=== PATIENT | male | born 2000 | race Hispanic/Latino ===

== ENCOUNTER 2021-01-22 16:39 | Emergency (ER) | payer SELFPAY ==
--- NOTE | 2021-01-22 18:13 | EDPHYS ---
Physician Documentation [facility] Name: Juvenal Amezcua Age: 20 yrs Sex: Male : 2000 Arrival Date: 01/22/2021 Time: 16:40 Bed 12 Private MD: ED Physician Devyn Mckeon HPI: 01/22 18:05 This 20 yrs old Male presents to ER via Ambulatory with complaints of Finger satya Injury. 18:05 Trauma demographics: County: The injury occurred in [place]. Mechanism of injury: satya LACERATION. Associated injuries: The patient sustained painful injury. Onset: The symptoms/episode began/occurred 1.5 hour(s) ago. The patient has not experienced similar symptoms in the past. Historical: - Allergies: 16:58 No Known Allergies; jl7 - Home Meds: 16:58 None [Active]; jl7 - PMHx: 16:58 None; jl7 - PSHx: 16:58 None; jl7 - Immunization history:: Adult Immunizations not immunized. - Social history:: Smoking status: Patient denies any tobacco usage or history of. - Family history:: not pertinent. ROS: 18:05 Constitutional: Negative for fever, chills, and weight loss, Eyes: Negative for injury, satya pain, redness, and discharge, ENT: Negative for injury, pain, and discharge, Neck: Negative for injury, pain, and swelling, Cardiovascular: Negative for chest pain, palpitations, and edema, Respiratory: Negative for shortness of breath, cough, wheezing, and pleuritic chest pain, Abdomen/GI: Negative for abdominal pain, nausea, vomiting, diarrhea, and constipation, Back: Negative for injury and pain, : Negative for injury, bleeding, discharge, and swelling, MS/Extremity: Negative for injury and deformity, Neuro: Negative for headache, weakness, numbness, tingling, and seizure, Psych: Negative for depression, anxiety, suicide ideation, homicidal ideation, and hallucinations, Allergy/Immunology: Negative for hives, rash, and allergies, Endocrine: Negative for neck swelling, polydipsia, polyuria, polyphagia, and marked weight changes, Hematologic/Lymphatic: Negative for swollen nodes, abnormal bleeding, and unusual bruising. 18:05 Skin: Positive for laceration(s). Exam: 18:05 Constitutional: This is a well developed, well nourished patient who is awake, alert, satya and in no acute distress. Head/Face: Normocephalic, atraumatic. Eyes: Pupils equal round and reactive to light, extra-ocular motions intact. Lids and lashes normal. Conjunctiva and sclera are non-icteric and not injected. Cornea within normal limits. Periorbital areas with no swelling, redness, or edema. ENT: Nares patent. No nasal discharge, no septal abnormalities noted. Tympanic membranes are normal and external auditory canals are clear. Oropharynx with no redness, swelling, or masses, exudates, or evidence of obstruction, uvula midline. Mucous membranes moist. Neck: Trachea midline, no thyromegaly or masses palpated, and no cervical lymphadenopathy. Supple, full range of motion without nuchal rigidity, or vertebral point tenderness. No Meningismus. Chest/axilla: Normal chest wall appearance and motion. Nontender with no deformity. No lesions are appreciated. Cardiovascular: Regular rate and rhythm with a normal S1 and S2. No gallops, murmurs, or rubs. Normal PMI, no JVD. No pulse deficits. Respiratory: Lungs have equal breath sounds bilaterally, clear to auscultation and percussion. No rales, rhonchi or wheezes noted. No increased work of breathing, no retractions or nasal flaring. Abdomen/GI: Soft, non-tender, with normal bowel sounds. No distension or tympany. No guarding or rebound. No evidence of tenderness throughout. Back: No spinal tenderness. No costovertebral tenderness. Full range of motion. Male : Normal genitalia with no discharge or lesions. MS/ Extremity: Pulses equal, no cyanosis. Neurovascular intact. Full, normal range of motion. Neuro: Awake and alert, GCS 15, oriented to person, place, time, and situation. Cranial nerves II-XII grossly intact. Motor strength 5/5 in all extremities. Sensory grossly intact. Cerebellar exam normal. Normal gait. Psych: Awake, alert, with orientation to person, place and time. Behavior, mood, and affect are within normal limits. 18:05 Skin: injury, laceration(s), the wound is approximately 2.5 cm(s), with a depth of .25 cm(s), of the palmar aspect of proximal phalanx of left little finger. Vital Signs: 16:56 BP 163 / 96; Pulse 72; Resp 17; Temp 97.5; Pulse Ox 100% ; Weight 120.2 kg; Height 5 jl7 ft. 9 in. (175.26 cm); Pain 0/10; 16:56 Body Mass Index 39.13 (120.20 kg, 175.26 cm) jl7 MDM: 17:05 Patient medically screened. [facility] 18:05 Data reviewed: vital signs, nurses notes. 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 rate is 72 beats/min, rhythm is regular. Counseling: I had a detailed discussion with the patient and/or guardian regarding: the historical points, exam findings, and any diagnostic results supporting the discharge/admit diagnosis. 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 Exp: es2 08/08/2022. Lot #: [id number]. } Route: IM; Site: right deltoid; 18:46 Follow up: Response: No adverse reaction es2 18:20 Drug: KeFLEX (cephalexin) 500 mg Route: PO; es2 18:46 Follow up: Response: No adverse reaction es2 18:46 Drug: Lidocaine-Epinephrine -1%: (1:100,000) 5 ml Volume: 20 ml; Route: Infiltration; es2 18:46 Follow up: Response: No adverse reaction es2 18:46 Drug: Neosporin (wczizngh-eqqfkvkwaf-[id number]) Ointment 1 application Route: Topical; es2 Site: left hand; 18:47 Follow up: Response: No adverse reaction es2 Disposition Summary: 01/22/21 18:12 Discharge Ordered Location: Home satya Problem: new satya Symptoms: have improved satya Condition: Stable satya Diagnosis - Laceration without foreign body of left hand satya Followup: satya - With: Private Physician - When: 7 - 10 days - Reason: Recheck today's complaints, Continuance of care, Re-evaluation by your physician Discharge Instructions: - Discharge Summary Sheet satya - Laceration Care, Adult satya - Laceration Care, Adult, [id number] Forms: - Medication Reconciliation Form satya - Thank You Letter satya - Antibiotic Education satya - Prescription Opioid Use [facility] Prescriptions: - Cephalexin 500 mg Oral Capsule - take 1 capsule by ORAL route every 6 hours for 7 days; 28 capsule; Refills: 0, satya Product Selection Permitted Signatures: Deyvn Mckeon MD MD cha Leal, Jahala RN RN jl7 Breana Barcenas RN RN es2
--- NOTE | 2021-01-22 18:13 | ER ---
Nurse's Notes [facility] Name: Juvenal Amezcua Age: 20 yrs Sex: Male : 2000 Arrival Date: 01/22/2021 Time: 16:40 Bed 12 Private MD: Diagnosis: Laceration without foreign body of left hand Presentation: 01/22 16:56 Chief complaint: Patient states: Laceration to anterior side of little finger and palm jl7 from jacob while sanding a car fender. Coronavirus screen: At this time, the client does not indicate any symptoms associated with coronavirus-19. Ebola Screen: No symptoms or risks identified at this time. Initial Sepsis Screen: Does the patient meet any 2 criteria? No. Patient's initial sepsis screen is negative. Does the patient have a suspected source of infection? No. Patient's initial sepsis screen is negative. Risk Assessment: Do you want to hurt yourself or someone else? Patient reports no desire to harm self or others. Onset of symptoms was January 22, 2021. 16:56 Method Of Arrival: Ambulatory [facility] 16:56 Acuity: FORTINO 4 jl7 Triage Assessment: 16:58 General: Appears in no apparent distress. uncomfortable, Behavior is calm, cooperative, jl7 appropriate for age. Pain: Denies pain. Musculoskeletal: Range of motion: intact in all extremities. Injury Description: Laceration sustained to palmar aspect of proximal phalanx of left little finger. Historical: - Allergies: 16:58 No Known Allergies; jl7 - Home Meds: 16:58 None [Active]; jl7 - PMHx: 16:58 None; jl7 - PSHx: 16:58 None; jl7 - Immunization history:: Adult Immunizations not immunized. - Social history:: Smoking status: Patient denies any tobacco usage or history of. - Family history:: not pertinent. Screenin:22 Abuse screen: Denies threats or abuse. Denies injuries from another. Nutritional es2 screening: No deficits noted. Tuberculosis screening: No symptoms or risk factors identified. Fall Risk Gait- Normal/Bed Rest/Wheelchair (0 pts) Mental Status- Oriented to own ability (0 pts). Assessment: 17:20 General: Appears comfortable, well developed, well nourished, Behavior is calm, es2 cooperative, appropriate for age. Pain: Denies pain. Neuro: Level of Consciousness is awake, alert, obeys commands, Oriented to person, place, time, situation, Appropriate for age Gait is steady, Speech is normal, Facial symmetry appears normal. Cardiovascular: Capillary refill < 3 seconds Patient's skin is warm and dry. Respiratory: Airway is patent Trachea midline Respiratory effort is even, unlabored, Respiratory pattern is regular, symmetrical. GI: No signs and/or symptoms were reported involving the gastrointestinal system. : No signs and/or symptoms were reported regarding the genitourinary system. EENT: No signs and/or symptoms were reported regarding the EENT system. Derm: No signs and/or symptoms reported regarding the dermatologic system. Derm: lac to pinkie. Musculoskeletal: No signs and/or symptoms reported regarding the musculoskeletal system. Injury Description: Laceration sustained to left hand and palmar aspect of proximal phalanx of left little finger. Vital Signs: 16:56 BP 163 / 96; Pulse 72; Resp 17; Temp 97.5; Pulse Ox 100% ; Weight 120.2 kg; Height 5 jl7 ft. 9 in. (175.26 cm); Pain 0/10; 16:56 Body Mass Index 39.13 (120.20 kg, 175.26 cm) jl7 ED Course: 16:40 Patient arrived in ED. am2 16:58 Triage completed. jl7 16:58 Arm band placed on right wrist. jl7 17:05 Devyn Mckeon MD is Attending Physician. [facility] 17:17 Breana Barcenas RN is Primary Nurse. es2 17:22 Patient has correct armband on for positive identification. Call light in reach. es2 18:47 Patient did not have IV access during this emergency room visit. es2 18:47 Assist provider with laceration repair on left hand and palmar aspect of proximal es2 phalanx of left little finger using sutures. 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 Exp: es2 08/08/2022. Lot #: [id number]. } Route: IM; Site: right deltoid; 18:46 Follow up: Response: No adverse reaction es2 18:20 Drug: KeFLEX (cephalexin) 500 mg Route: PO; es2 18:46 Follow up: Response: No adverse reaction es2 18:46 Drug: Lidocaine-Epinephrine -1%: (1:100,000) 5 ml Volume: 20 ml; Route: Infiltration; es2 18:46 Follow up: Response: No adverse reaction es2 18:46 Drug: Neosporin (jeojuvrh-frnaxplcua-nwfplrbxn) Ointment 1 application Route: Topical; es2 Site: left hand; 18:47 Follow up: Response: No adverse reaction es2 Outcome: 18:12 Discharge ordered by MD. hernadez 18:47 Condition: stable es2 18:47 Discharge instructions given to patient, Instructed on discharge instructions, wound care, Demonstrated understanding of instructions, wound care, Prescriptions given X 1. 18:47 Discharged to home ambulatory. es2 18:48 Patient left the ED. es2 Signatures: Devyn Mckeon MD MD cha Leal, Jahala, RN RN jl7 Rylee Kim Elizabeth, RN RN es2
[2021-01-22] MEDS ORDERED: LIDOCAINE 1% W/EPI 1:100,000 MDV 20 ML VIAL ONE (18:29)
[2021-01-22] MEDS ORDERED: TETANUS & DIPHTHERIA TOX,ADULT 0.5 ML VIAL ONE (18:38)
[2021-01-22] MEDS ORDERED: levETIRAcetam 500 MG TAB ONE (18:42)
[2021-01-22] MEDS ORDERED: BACI/NEOMYCIN/POLY OINT 15GM TOP ONE (18:43)
[2021-01-22 18:54] VITALS: BP 163/96; TEMP 97.5; O2SAT 100
== END 2021-01-22 18:48 | disposition home or self-care (01) ==
LOC: ER 16:39
PROC: 0JQK0ZZ Repair Left Hand Subcutaneous Tissue and Fascia, Open Approach (ICD-10-PCS; principal; 2021-01-22)
DX: S61.217A Laceration without foreign body of left little finger without damage to nail, initial encounter (principal); Z23 Encounter for immunization
CPT/HCPCS: 90471; 90714; 99283